=== PATIENT | male | born 1955 | race Caucasian/White ===

== ENCOUNTER 2025-07-16 22:57 | Emergency (ER) | payer MEDICARE, OTHER, SELFPAY ==
[2025-07-16 23:01] VITALS: PULSE 59; O2SAT 87
[2025-07-16 23:02] VITALS: BP 94/55; PULSE 63; RESP 18; O2SAT 94
[2025-07-16 23:04] VITALS: BP 94/79; PULSE 80; RESP 16; O2SAT 98; BMI 23.7
--- NOTE | 2025-07-16 23:11 | DI.CT.S_ITS ---
PROCEDURE: CT HEAD/BRAIN WO CON INDICATIONS: etoh, syncope TECHNIQUE: Noncontrast 4.5 mm thick angled axial sections acquired from the foramen magnum to the vertex, with coronal and sagittal reformats. For radiation dose reduction, the following was used: automated exposure control, adjustment of mA and/or kV according to patient size. COMPARISON: None. FINDINGS: Image quality: Motion degraded CSF spaces: Basal cisterns are patent. No extra-axial fluid collections. The ventricles are symmetric in size and shape. Brain: No intracranial bleeds or mass effect. There is cerebral volume loss, with resultant ventricular and sulcal prominence. There are periventricular and deep white matter chronic small vessel ischemic changes. There is intracranial internal carotid artery atherosclerosis. Skull and face: Calvarium and visualized facial bones appear intact, without suspicious lesions. Sinuses: Visualized sinuses and mastoids are clear. IMPRESSION: Motion degraded exam, limiting evaluation. Within these limitations, no acute intracranial process is identified. Dictated by: Luke Reed M.D. on 07/17/2025 at 0:21 Approved by: Luke Reed M.D. on 07/17/2025 at 0:22
--- NOTE | 2025-07-16 23:11 | EKG_ITS ---
[address] [address] Test Date: 2025-07-17 Pat Name: Richard Mackenzie Department: [facility] Room: Gender: Male [employer] Content [employer] Manager: PDV : 1955 Requested By: Order Number: [id number] Reading MD: Cam Meraz Measurements Intervals [place] Rate: 68 P: 20 CO: 168 QRS: 58 QRSD: 98 T: 67 QT: 418 QTc: 444 Interpretive Statements Sinus rhythm with premature atrial complexes Electronically Signed On 07-19-2025 16:54:27 PDT by Cam Meraz
--- NOTE | 2025-07-16 23:11 | DI.CT.S_ITS ---
PROCEDURE: CT CERVICAL SPINE WO CON INDICATIONS: etoh, syncope TECHNIQUE: Noncontrast 3 mm thick sections acquired from the skull base to the T4 level. Sagittal and coronal reformats were then constructed. For radiation dose reduction, the following was used: automated exposure control, adjustment of mA and/or kV according to patient size. COMPARISON: None. FINDINGS: Image quality: Excellent. Bones: No fractures or dislocations. Multilevel degenerative changes of the cervical spine. Visualized superior ribs are intact. Soft tissues: Prevertebral soft tissues are normal in thickness. No paravertebral hematomas. No apical pneumothoraces. IMPRESSION: No displaced fracture or traumatic subluxation. Dictated by: Luke Reed M.D. on 07/17/2025 at 0:22 Approved by: Luke Reed M.D. on 07/17/2025 at 0:23
--- NOTE | 2025-07-16 23:11 | DI.RAD.S_ITS ---
PROCEDURE: XR CHEST 1V INDICATIONS: syncope, etoh TECHNIQUE: One view of the chest was acquired. COMPARISON: None. FINDINGS: Surgical changes and devices: None. Lungs and pleura: Lungs are clear. No pleural effusions or pneumothorax. Mediastinum: Mediastinal contours appear normal. Heart size is normal. Bones and chest wall: No suspicious bony lesions. Overlying soft tissues appear unremarkable. IMPRESSION: No acute cardiopulmonary abnormality is seen. Dictated by: Luke Reed M.D. on 07/17/2025 at 0:24 Approved by: Luke Reed M.D. on 07/17/2025 at 0:24
[2025-07-16 23:30] VITALS: BP 94/55; PULSE 65; RESP 21
--- NOTE | 2025-07-16 23:46 | ED.GENADULT ---
HPI - General Adult General Chief complaint: Syncope Stated complaint: etoh/syncope Time Seen by Provider: 07/16/25 23:01 Source: patient, EMS, RN notes reviewed and old records reviewed Mode of arrival: EMS Limitations: no limitations History of Present Illness HPI narrative: 70-year-old male history of hypertension on [place], patient presents with syncopal episode. Was ambulating when he sort of had a near syncopal syncopal episode sort of hit the wall and then bounced off another while and fell to the ground. He is unsure if he hit his head. He has had alcohol this evening was at a wedding green party earlier he states he had quite a bit to drink stopped about 6:00 p.m.. Was at a friend's house and this was witnessed. Was hypotensive for EMS in the field but seemed to be responding to fluids. Patient states he may have accidentally taken an extra dose of his blood pressure medication he is unsure. Patient denies headache, denies chest pain, denies shortness of breath. Denies any nausea or vomiting. Denies any issues with bowel movements or urination. Denies any incontinence. Denies any numbness tingling or weakness. Denies any neck or back pain. Patient states he had prior tonsillectomy. Denies any drug allergies. No tobacco, does have an alcoholic drinks such as a beer and a shot daily, no other recreational drugs. He lives in [place]. Related Data Previous Rx's ?Medication ?Instructions ?Recorded lisinopril 10 1 tab PO QDAY #30 tabs 07/26/16 mg-hydrochlorothiazide 12.5 mg tablet (Zestoretic) Allergies Allergy/AdvReac Type Severity Reaction Status Date / Time latex Allergy Mild RASH Unverified 02/19/18 11:45 GASOLINE FUMES Allergy Mild MIGRAINES Uncoded 02/19/18 11:45 Review of Systems Review of Systems ROS Unobtainable: All systems reviewed & are unremarkable except as noted in HPI and below Patient History Social History Smoking Status: Former smoker Smoking Status: Former smoker Alcohol type: beer, wine and hard liquor Exam Narrative Exam Narrative: GEN: Patient appears in mild distress. HEAD: No evidence of trauma, no raccoon/Torrez sign. NECK: Nontender, painless range of motion, trachea midline Positive Nexus criteria, no midline line tenderness, distracting injury, altered mental status, neuro deficit, positive recent EtOH. EYES: PERRLA, EOMI ENT: External inspection normal, trachea is midline, TM's are normal no hemotypanum, Nares are clear, no septal hematoma, no dental or oral injury, airway is normal and with normal occlusion, No bony tenderness RESP: Chest is nontender and has symmetric movement, no ecchymosis, breath sounds are normal no crackles, wheezes or rales CVS: Heart sounds are normal, no murmur noted, No JVD. ABG/GI: Nontender, soft, normal bowel sounds, no distention, no organomegaly, pelvic rock is negative NEURO: Oriented AOx3, neuro is grossly intact, sensation and motor is normal all 4 extremities moving, cranial nerves II through XII are intact, GCS is 15 PSYCH: Normal mood and affect SKIN: Intact, warm and dry, no crepitus and without decubitus BACK: No CVA tenderness, no vertebral tenderness, no step-off's, no crepitus EXT: Atraumatic, hips are nontender, no pedal edema, normal color and temperature, normal range of motion of extremities with normal tendon exam, 2+ pulses in all four extremities Initial Vital Signs Initial Vital Signs: Vital Signs Pulse Rate 59 L 07/16/25 23:01 Pulse Oximetry 87 L 07/16/25 23:01 Course Orders Ordered: ED Orders 07/16/25 23:11 CT cervical spine wo con Stat CT head/brain wo con Stat XR chest 1V Stat EKG-12 Lead Stat 07/16/25 23:45 Complete Blood Count AUTO DIFF Stat Comprehensive Metabolic Panel Stat ETOH [Ethanol (ETOH)] Stat Lipase Stat NT-proBNP (BNP-Adult 18+) Stat Troponin & CK Cardiac Panel Stat Discontinued Medications Sodium Chloride (Normal Saline 0.9%) 500 mls @ 1,000 mls/hr IV BOLUS ONE Stop: 07/17/25 02:45 Vital Signs Vital signs: Vital Signs - 8 hr 07/16/25 23:01 07/16/25 23:02 07/16/25 23:02 Pulse Rate 59 L 63 Respiratory Rate 18 Blood Pressure 94/55 L Pulse Oximetry 87 L 94 Oxygen Delivery Method 07/16/25 23:04 07/16/25 23:30 07/16/25 23:30 Pulse Rate 80 65 Respiratory Rate 16 21 Blood Pressure 94/79 94/55 L Pulse Oximetry 98 Oxygen Delivery Method Room Air 07/17/25 00:15 07/17/25 00:30 07/17/25 00:51 Pulse Rate 73 64 74 Respiratory Rate 21 17 21 Blood Pressure Pulse Oximetry 97 94 94 Oxygen Delivery Method 07/17/25 00:51 07/17/25 01:00 07/17/25 01:00 Pulse Rate 66 Respiratory Rate 17 Blood Pressure 108/55 L 100/55 L Pulse Oximetry 95 Oxygen Delivery Method 07/17/25 01:30 07/17/25 01:30 07/17/25 02:00 Pulse Rate 67 Respiratory Rate 17 Blood Pressure 98/53 L 105/53 L Pulse Oximetry 93 Oxygen Delivery Method 07/17/25 02:00 07/17/25 02:38 Pulse Rate 69 77 Respiratory Rate 18 Blood Pressure Pulse Oximetry 94 97 Oxygen Delivery Method Room Air Room Air Medical Decision Making Lab Data 07/16/25 23:45 07/16/25 23:45 Labs: Lab Results 07/16/25 Range/Units 23:45 WBC 4.3 L (4.5-11.0) X10^3/uL RBC 3.31 L (4.5-5.9) X10^6/uL Hgb 11.5 L (13.5-17.5) g/dL Hct 32.8 L (41-53) % MCV 99.2 (80-100) fL MCH 34.7 H (26-34) PG MCHC 34.9 (30-36) % RDW 13.6 (11.6-14.8) % Plt Count 176 (150-400) X10^3/uL Neut % (Auto) 39.2 L (50-75) % Lymph % (Auto) 35.6 (25-40) % [place] % (Auto) 9.8 (3-14) % Eos % (Auto) 14.9 H (2-4) % Baso % (Auto) 0.5 (0-2) % Neut # (Auto) 1700 (7109-4990) /uL Lymph # (Auto) 1500 (8676-4204) /uL [place] # (Auto) 400 (0-900) /uL Eos # (Auto) 600 H (0-450) /uL Baso # (Auto) 0 (0-100) /uL Sodium 139 (137-145) mmol/L Potassium 3.7 (3.4-5.1) mmol/L Chloride 109 H (98-107) mmol/L Carbon Dioxide 20 L (22-32) mmol/L BUN 29 H (9-20) mg/dL Creatinine 1.07 (0.66-1.25) mg/dL Estimated GFR > 60 (>60) mL/min BUN/Creatinine Ratio 27.1 H (6-22) Glucose 137 H (70-99) mg/dL Calcium 8.4 (8.4-10.2) mg/dL Total Bilirubin 0.2 (0.2-1.3) mg/dL AST 25 (17-59) IU/L ALT 16 (<50) IU/L Alkaline Phosphatase 46 (38-126) U/L Total Creatine Kinase 55 (55-170) U/L Troponin I < 0.012 (0.01-0.034) ng/mL NT-Pro-B Natriuret Pep 128 H (<125) pg/mL Total Protein 6.4 (6.3-8.2) g/dL Albumin 3.3 L (3.5-5.0) g/dL Globulin 3.1 (1.7-4.1) g/dL Albumin/Globulin Ratio 1.1 (1.0-2.8) Lipase 154 (23-300) U/L Ethyl Alcohol < 10 (<10) mg/dL ECG Data Attestation: I personally reviewed and interpreted this ECG as follows: Interpretation: EKG sinus rhythm premature atrial complex.? Rate of 68 WA 168 QRS of 98 QTC of 444.? No acute ST-elevation depression.? Q-wave in lead 3 slightly depressed T-wave, no acute elevation.? Patient does not have any priors for comparison.?? [facility] Narrative Medical decision making narrative: Labs white count 4.3 hemoglobin is 11.5 platelets are 176, electrolytes show a chloride of 109 CO2 of 20 BUN 29, glucose of 137, creatinine is 1.07 LFTs are negative troponins less than 0.012 with a BNP of 128. Lipase is 154. ETOH is negative EKG sinus rhythm premature atrial complex. Rate of 68 [place] 168 QRS of 98 QTC of 444. No acute ST-elevation depression. Q-wave in lead 3 slightly depressed T-wave, no acute elevation. Patient does not have any priors for comparison. Head CT head CT shows no acute intracranial process does have some limited 2nd in a motion degraded exam. CT cervical no displaced fracture or traumatic subluxation. Chest x-ray no acute cardiopulmonary abnormality. Patient received 1 L fluids. Feels much improved he is able to ambulate without any difficulties. Did note his blood pressure has a little bit soft but he would like to be discharged. He states his normal range has 100 systolic to 140 systolic. He did note any thought he possibly took an extra dose overnight but is unsure. We will have patient hold his a.m. dose of antihypertensive and he states he has access to a blood pressure cuff to rechecked. Does have what appears to be little bit of anemia no prior labs for comparison. Notes you did not have alcohol early in the evening but was negative here in the department. Discharge Plan Departure Patient Disposition: Home Clinical Impression: Syncope Instructions: DI for Syncope in Adults (Fainting) Activity Restrictions/Additional Instructions: Follow up for rechecked, your blood pressure was quite low at has been improving but do not take your blood pressure medication this morning. Continue to monitor blood pressure before you restart your blood pressure medication. If you have any recurrent symptoms, any passing out, lightheadedness, new chest pain, increased shortness of breath, any persistent vomiting, black bloody stools or other new or concerning changes please return to the emergency department. Prescriptions: No Action lisinopril-hydrochlorothiazide [Zestoretic] 10 MG/12.5 MG tablet 1 tab PO QDAY Qty: 30 0RF Stand Alone Forms: Patient Portal/API
[2025-07-17] VITALS (7 sets, daily range): BP systolic 98–108; BP diastolic 53–55; PULSE 64–77; RESP 17–21; O2SAT 93–97
[2025-07-17 00:14] LABS: Add Manual Diff / Slide Review NO; Hematocrit 32.8 % (41-53); Hemoglobin 11.5 g/dL (13.5-17.5); Lymphocytes Absolute Auto 1500 /uL (1100-4500); Mean Corpuscular HGB Conc 34.9 % (30-36); Mean Corpuscular Hemoglobin 34.7 PG (26-34); Mean Corpuscular Volume 99.2 fL (80-100); Platelet Count 176 X10^3/uL (150-400)
[2025-07-17 00:29] LABS: Alanine Aminotransferase 16 IU/L (<50); Albumin 3.3 g/dL (3.5-5.0); Albumin Globulin Ratio 1.1 (1.0-2.8); Alkaline Phosphatase 46 U/L (38-126); Blood Urea Nitrogen 29 mg/dL (9-20); Calcium 8.4 mg/dL (8.4-10.2); Carbon Dioxide 20 mmol/L (22-32); Chloride 109 mmol/L (98-107); Creatine Kinase 55 U/L (55-170); Estimated Glomerular Filt Rate > 60 mL/min (>60); Ethanol (ETOH) < 10 mg/dL (<10); Globulin 3.1 g/dL (1.7-4.1); Glucose 137 mg/dL (70-99); HEMOLYSIS < 15 (0-50); Lipase 154 U/L (23-300); Potassium 3.7 mmol/L (3.4-5.1); Sodium 139 mmol/L (137-145); Total Protein 6.4 g/dL (6.3-8.2)
[2025-07-17 00:37] LABS: NT-proBNP (BNP-Adult 18+) 128 pg/mL (<125)
[2025-07-17 00:41] LABS: Troponin I < 0.012 ng/mL (0.01-0.034)
== END 2025-07-17 02:42 | disposition home or self-care (01) ==
PROVIDERS: Emergency Provider Emergency Medicine; Family Provider Family Medicine
DX: R55 Syncope and collapse (principal); S09.90XA Unspecified injury of head, initial encounter; Z87.891 Personal history of nicotine dependence
CPT/HCPCS: 36415; 70450; 71045; 72125; 80053; 80320; 82550; 83690; 83880; 84484; 85025; 93005; 99283; 99284